=== PATIENT | female | born 1975 | race Caucasian/White ===

== ENCOUNTER 2021-10-07 08:01 | Emergency (ER) | payer OTHER ==
[~2021-10-07] VITALS: Ht 157.5 cm; Wt 73.5 kg
[2021-10-07 08:12] VITALS: BP 143/100
--- NOTE | 2021-10-07 08:16 | NUR ---
PT TO AWAIT IN TENT
[2021-10-07] MEDS ORDERED: IBUP-2213 PO (09:07)
[2021-10-07] MEDS ORDERED: PRED20TA5 PO (09:07)
[2021-10-07 09:51] VITALS: BP 143/100
--- NOTE | 2021-10-07 09:51 | NUR ---
Patient discharged with v/s stable. Written and verbal after care instructions given and explained. Patient alert, oriented and verbalized understanding of instructions. Ambulatory with steady gait. All questions addressed prior to discharge. ID band removed. Patient advised to follow up with PMD. Rx of IBUPROFEN, DELTASONE given. Patient educated on indication of medication including possible reaction and side effects. Opportunity to ask questions provided and answered.
== END 2021-10-07 09:51 | disposition home or self-care (01) ==
LOC: MED 08:01
DX: J02.9 Acute pharyngitis, unspecified (principal); R05.9 Cough, unspecified; Z86.19 Personal history of other infectious and parasitic diseases
CPT/HCPCS: 99283

== ENCOUNTER 2023-05-02 07:51 | Emergency (ER) | payer OTHER ==
[~2023-05-02] VITALS: Ht 157.5 cm; Wt 77.1 kg
[~2023-05-02 07:51] MED LIST: IBUP-2213 PO; PRED20TA5 PO
[2023-05-02 08:13] VITALS: BP 134/74; PULSE 78; RESP 20; TEMP 98; O2SAT 99
[2023-05-02] MEDS ORDERED: MECLIZINE 25 MG TAB PO ONE (08:35)
[2023-05-02] MEDS ORDERED: ONDANSETRON 4 MG ODT PO ONE (08:35)
--- NOTE | 2023-05-02 08:51 | NUR ---
PATIENT AMBULATED TO ED BED 09
--- NOTE | 2023-05-02 09:22 | NUR ---
SAYS ANTIVERT DID NOT WORK TODAY, TOOK 2 DOSES THIS AM
[2023-05-02] MEDS ORDERED: LORazepam 1 MG TAB PO ONE (09:25)
[2023-05-02] MEDS ORDERED: ONDA-188 PO (10:22)
[2023-05-02 10:48] VITALS: BP 145/72; PULSE 79; RESP 18; TEMP 98; O2SAT 98
== END 2023-05-02 10:49 | disposition home or self-care (01) ==
LOC: MED 07:51
DX: H81.391 Other peripheral vertigo, right ear (principal); R51.9 Headache, unspecified; R11.0 Nausea; I10 Essential (primary) hypertension; Z79.899 Other long term (current) drug therapy
CPT/HCPCS: 99283; Q0162